=== PATIENT | male | born 1970 | race Caucasian/White ===

== ENCOUNTER 2016-12-17 05:05 | Emergency (ER) | payer OTHER ==
[~2016-12-17 05:05] MED LIST: MOBIC15 MG PO; PRILOSEC 20MG C20 MG PO
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
[2016-12-17] MEDS ORDERED: IBUPROFEN800 M1 PO (06:31)
[2016-12-17 06:42] VITALS: BP 145/69
== END 2016-12-17 06:33 ==
LOC: ERH 05:05
DX: S09.90XA Unspecified injury of head, initial encounter (principal); S06.0X0A Concussion without loss of consciousness, initial encounter; S80.211A Abrasion, right knee, initial encounter; W19.XXXA Unspecified fall, initial encounter; Y92.9 Unspecified place or not applicable; Y93.9 Activity, unspecified

== ENCOUNTER 2017-02-09 10:03 | Emergency (ER) | payer OTHER ==
[~2017-02-09] VITALS: Ht 172.7 cm; Wt 88.5 kg
[~2017-02-09 10:03] MED LIST changes: +IBUPROFEN800 M1 PO
--- NOTE | 2017-02-09 10:08 | ED GI/GU/ABDOMINAL COMPLAINT ---
History of Present Illness General Chief Complaint: Abdominal Pain/Flank Pain Stated Complaint: ABD PAIN BLOODY STOOL Source: patient Exam Limitations: no limitations Vital Signs & Intake/Output Vital Signs & Intake/Output Vital Signs Date Time Temp Pulse Resp B/P B/P Pulse O2 O2 Flow FiO2 Mean Ox Delivery Rate 02/09 1652 98.3 89 15 142/74 100 Room Air 02/09 1253 97.9 84 16 136/88 96 Room Air 02/09 1016 100 22 176/101 100 ED Intake and Output 02/10 0000 02/09 1200 Intake Total 1000 Output Total Balance 1000 Intake, IV 1000 Patient 195 lb Weight Allergies Coded Allergies: NO KNOWN ALLERGIES (04/25/13) Reconcile Medications Amoxicillin/Potassium Clav (Augmentin 875-125 Tablet) 875 MG-125 MG TABLET 1 TAB PO BID INFECTION Cetirizine HCl (Zyrtec) 10 MG TABLET 1 TAB PO DAILY ALLERGIES (Reported) Omeprazole Magnesium (Prilosec Otc) 20 MG TABLET.DR 1 TAB PO DAILY REFLUX ( Reported) Triage Nurses Notes Reviewed? yes HPI: 46-year-old male arrives through triage to room 3 for evaluation of bloody stools that occurred this morning. He reports he was having a normal bowel movement with no straining when he noted to have blood in the toilet bowl and on his stool. He then went to go have some coffee and he felt he had to go to the bathroom again, this time loose stool with blood. He denies any abdominal pain, nausea, vomiting, fever or chills. He last ate at midnight red velvet Cake. He has been eating and drinking with no issues. He denies any pain with defecation. Here in the emergency department he had another bowel movement which was loose with blood. (ZACHARY THEODORE APRN) Past History Medical History Any Pertinent Medical History? 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 No (ZACHARY THEODORE APRN) Review of Systems Review of Systems Constitutional: Reports: no symptoms. EENTM: Reports: no symptoms. Respiratory: Reports: no symptoms. Cardiovascular: Reports: no symptoms. GI: Reports: nausea. Genitourinary: Reports: no symptoms. Musculoskeletal: Reports: no symptoms. Skin: Reports: no symptoms. Neurological/Psychological: Reports: no symptoms. Hematologic/Endocrine: Reports: no symptoms. Immunologic/Allergic: Reports: no symptoms. All Other Systems: Reviewed and Negative (ZACHARY THEODORE APRN) Physical Exam Physical Exam General Appearance: well developed/nourished, no apparent distress, alert, awake , comfortable Head: atraumatic, normal appearance Eyes: Bilateral: normal appearance, PERRL, EOMI, normal inspection. Ears, Nose, Throat, Mouth: hearing grossly normal, moist mucous membrane Neck: normal inspection, supple, full range of motion Respiratory: normal breath sounds, chest non-tender, no respiratory distress Cardiovascular: regular rate/rhythm Gastrointestinal: soft, abnormal bowel sounds (HYPERACTIVE), tenderness (LLQ MILD) Rectal: normal inspection, normal rectal tone, heme positive stool Back: normal inspection, normal range of motion Extremities: normal range of motion Neurologic/Psych: no motor/sensory deficits, awake, alert, oriented x 3, normal gait, normal mood/affect Skin: intact, normal color, warm/dry Core Measures ACS in differential dx? No Severe Sepsis Present: No Septic Shock Present: No (ZACHARY THEODORE APRN) Progress Differential Diagnosis: diverticulitis, ischemic bowel (COLITIS), inflamm bowel dis, peptic ulcer, PUD/GERD Plan of Care: Orders Procedure Date/time Status Saline Lock 02/09 1007 Active LIPASE 02/09 1007 Complete LACTIC ACID 02/09 1007 Complete COMPREHENSIVE METABOLIC PANEL 02/09 1007 Complete CBC WITHOUT DIFFERENTIAL 02/09 1007 Complete AMYLASE 02/09 1007 Complete Laboratory Tests 02/09/17 1307: Lactic Acid Cancelled 02/09/17 1030: Anion Gap 10, Estimated GFR > 60, BUN/Creatinine Ratio 8.9, Glucose 168 H, Lactic Acid 1.9, Calcium 9.3, Total Bilirubin 0.5, AST 34, ALT 45, Alkaline Phosphatase 86, Total Protein 7.3, Albumin 4.3, Globulin 3.0, Albumin/Globulin Ratio 1.4, Amylase 79, Lipase 177, CBC w Diff NO MAN DIFF REQ, RBC 5.13, MCV 91.7, MCH 31.3 H, RDW 13.5, MPV 8.6, Gran % 57.9, Lymphocytes % 29.1, Monocytes % 5.2, Eosinophils % 7.4 H, Basophils % 0.4, Absolute Granulocytes 4.1, Absolute Lymphocytes 2.1, Absolute Monocytes 0.4, Absolute Eosinophils 0.5, Absolute Basophils 0, PUBS MCHC 34.2 Initial ED EKG: none Comments: 12:[address] scan is down so I explained to Min the need for an abdominal CAT scan and we will send him to [facility] and he will be coming back with a reading. He understands the need for transfer and agrees. CT scan results from [facility] show colitis. He will be discharged home with Augmentin and follow-up with his primary care provider this week. Clear liquid diet for the next one to do days and then proceed to a bland diet. He is feeling better with no more episodes of bloody diarrhea or abdominal pain. Case discussed with Dr. Cha (ZACHARY THEODORE APRN) Departure Departure Time of Disposition: 1640 Disposition: HOME OR SELF CARE Condition: Stable Clinical Impression Primary Impression: Colitis Referrals: ROSY FREITAS MD (PCP/Family) Additional Instructions: Please follow up with her primary care provider this week. Augmentin 875 mg twice a day for 10 days. Liquids for the next 24-48 hours and then proceed to a bland diet. Departure Forms: Customer Survey General Discharge Information Prescriptions: Current Visit Scripts Amoxicillin/Potassium Clav (Augmentin 875-125 Tablet) 1 TAB PO BID #20 TAB (ZACHARY THEODORE APRN) PA/TRANSFORMER BUILDER Co-Sign Statement Statement: ED Attending supervision documentation- I saw and evaluated the patient. I have also reviewed all the pertinent lab results and diagnostic results. I agree with the findings and the plan of care as documented in the PA's/TRANSFORMER BUILDER's documentation. x I have reviewed the ED Record and agree with the PA's/TRANSFORMER BUILDER's documentation. [] Additions or exceptions (if any) to the PAs/TRANSFORMER BUILDER's note and plan are summarized below: [] (LIDA CHA MD)
[2017-02-09] MEDS ORDERED: ZYRTEC10 M3 PO (10:17)
[2017-02-09] MEDS ORDERED: PRILOSEC OTC20 M1 PO (10:17)
[2017-02-09 10:41] LABS: ABSOLUTE BASOPHIL COUNT 0 /CUMM (0.0-0.2); ABSOLUTE EOSINOPHIL COUNT 0.5 /CUMM (0.0-0.7); ABSOLUTE GRANULOCYTE CT 4.1 /CUMM (1.4-6.5); ABSOLUTE LYMPH COUNT 2.1 /CUMM (1.2-3.4); ABSOLUTE MONOCYTE COUNT 0.4 /CUMM (0.10-0.60); BASOPHIL % 0.4 % (0.0-2.0); EOSINOPHIL % 7.4 % (0-5); GRANULOCYTE % 57.9 % (42.2-75.2); HEMATOCRIT 47.1 % (42-52); MEAN CORPUSCULAR HGB 31.3 PG (27.0-31.0); MEAN CORPUSCULAR HGB CONC 34.2 G/DL (33.0-37.0); MEAN CORPUSCULAR VOLUME 91.7 FL (80.0-94.0); MEAN PLATELET VOLUME 8.6 FL (7.4-10.4); PLATELET COUNT 226 /CUMM (130-400); RBC DISTRIBUTION WIDTH 13.5 % (11.5-14.5); RED BLOOD CELL CT 5.13 /CUMM (4.70-6.10); WHITE BLOOD CELL COUNT 7.2 /CUMM (4.8-10.8)
[2017-02-09] MEDS ORDERED: AUGMENTIN 875-1 EACH PO (16:43)
[2017-02-09 16:52] VITALS: BP 142/74
== END 2017-02-09 16:53 ==
LOC: ERH 10:03
PROVIDERS: Nurse Practitioner Family
DX: K52.9 Noninfective gastroenteritis and colitis, unspecified (principal)
CPT/HCPCS: 96360